=== PATIENT | male | born 1985 | race Caucasian/White ===

== ENCOUNTER 2018-11-02 08:28 | Outpatient (REF) | payer OTHER, SELFPAY ==
[2018-11-02 11:44] LABS: Anion Gap 8.2 mmol/L (3-11); BUN 17 mg/dL (7-18); CO2 27.8 mmol/L (21.0-32.0); CREATININE 0.87 mg/dL (0.70-1.30); Calcium 8.6 mg/dL (8.5-10.1); Calculated LDL 153 mg/dL; Chloride 103 mmol/L (98-107); Cholesterol 206 mg/dL (50-200); Glucose 96 mg/dL (70-100); HDL Cholesterol 27 mg/dL (40-60); Potassium 4.3 mmol/L (3.5-5.1); Sodium 139 mmol/L (136-145); Triglyceride 133 mg/dL (30-150)
== END 2018-11-02 08:48 ==
LOC: NCHCN 08:28
PROVIDERS: PCP Nurse Practitioner Family; Visit Provider Nurse Practitioner Family
DX: R73.9 Hyperglycemia, unspecified (principal); E78.5 Hyperlipidemia, unspecified
CPT/HCPCS: 80048; 80061; 83721

== ENCOUNTER 2019-03-02 17:46 | Emergency (ER) | payer BC, SELFPAY ==
[2019-03-02 17:52] VITALS: BP 174/82; PULSE 59; RESP 16; TEMP 36.6; O2SAT 99
--- NOTE | 2019-03-02 18:07 | ED.GENADUL_ITS ---
Discharge Plan Disposition Patient Disposition: HOME Discharge Details Chief Complaint: Orthopedic Clinical Impression: Left ankle sprain Primary Care Provider: Cindy Pollock ED Provider: Hany Kelly Home Meds and New Rx's Prescriptions: Continued multivitamin with minerals [Multiple Vitamin-Minerals] 1 EACH tablet 1 ea PO DAILY RF: 0 Zyrtec 10 MG capsule 10 mg PO DAILY RF: 0 lisinopril 2.5 mg Tablet 2.5 mg PO DAILY RF: 0 Discharge Instructions Instructions: Ankle Sprain (ED) Additional Instructions: Use lace up ankle stabilizer and crutches. Weight-bear as tolerated. Please take ibuprofen over the counter. Take 600mg by mouth every 6 hours as needed for pain. Please take acetaminophen (tylenol) - 650mg every 6 hours by mouth as needed for pain. Please contact your primary care physician to arrange follow-up. Return to the ER for any worsening or new concerning symptoms. Stand Alone Forms: Work Release Referrals: Cindy Pollock [Primary Care Provider] - Discharge Data Discharge Date/Time-TO BE ENTERED AT DEPARTURE: 03/02/19 18:50 Medical Decision Making 33-year-old male here with inversion injury to left ankle with swelling and tenderness lateral malleolus. X-ray of the left ankle reviewed and interpreted by me: No fracture. Plan to treat with lace up ankle stabilizer and crutches. Usual and customary discharge instructions were provided. Patient aware of hypertension and notes he accidentally forgot to take his antihypertensive medication today. HPI General Mode of arrival: ambulatory . Date/Time Provider Initiated Documentation: 03/02/19 17:47 . Limitations to Documentation: no limitations . Information obtained by: patient . HPI Narrative: 33-year-old male presents with chief complaint of ankle pain. Patient notes he twisted his left ankle and inverted around 3 PM. He did experience a popping sensation during the injury. He has had pain since injury and associated swelling. Pain is moderate and worse with movement of the ankle. No associated numbness. Related Data Home Medications Medication Instructions Recorded Confirmed Zyrtec 10 mg PO DAILY 03/23/17 03/02/19 multivitamin with minerals 1 ea PO DAILY 03/23/17 03/02/19 [Multiple Vitamin-Minerals] lisinopril 2.5 mg PO DAILY 03/02/19 03/02/19 Allergies Allergy/AdvReac Type Severity Reaction Status Date / Time No Known Drug Allergies Allergy Unverified 03/02/19 17:54 dust Allergy Uncoded 03/02/19 17:54 General Stated Complaint: Orthopedic WILLEM: 4 Review of Systems Musculoskeletal Musculoskeletal: Reports as per HPI and Denies numbness Neurologic Neurologic: Denies numbness PFSH Medical History Hypertension (Chronic) Social History Smoking/Tobacco Use Status: Never Alcohol Intake: current Alcohol Intake frequency: a few times a week Drug use: Never Substance use type: does not use Do you feel safe at home: Yes Do you feel safe in your relationship?: Yes Additional Social history: pt is not alone to assess privately Exam Const General: cooperative and no acute distress Cardio Rate: regular rate Rhythm: regular rhythm Pulses: dorsalis pedis pulses present on the left 2+ Neuro General: alert, awake and tone normal Extrem General: no edema Left lower extremity: lower leg Details: no tenderness and ankle Details: tenderness Location: of the lateral malleolus and swelling Details: laterally Other: Distal motor and sensation intact Course Vital Signs Vital signs: Vital Signs Temperature 36.6 C 03/02/19 17:52 Pulse 59 L 03/02/19 17:52 Respiratory Rate 16 03/02/19 17:52 Blood Pressure 174/82 H 03/02/19 17:52 Pulse Oximetry 99 03/02/19 17:52 Temperature 36.6 C 03/02/19 17:52 Temperature Source Skin 03/02/19 17:52 Pulse 59 L 03/02/19 17:52 Respiratory Rate 16 03/02/19 17:52 Respiratory Effort Non-Labored 03/02/19 17:56 Blood Pressure 174/82 H 03/02/19 17:52 Pulse Oximetry 99 03/02/19 17:52 Pain Level 7 03/02/19 17:53
--- NOTE | 2019-03-02 18:15 | DI.RAD_ITS ---
EXAM: XR ANKLE LT COMPLETE INDICATION: tender lateral, twisted. COMPARISON: No exams were available for comparison TECHNIQUE: 2D digital imaging was performed. FINDINGS: There is soft tissue swelling around the lateral malleolus. No fracture or ankle mortise widening is seen. The talar dome appears intact. IMPRESSION: Lateral soft tissue swelling.
--- NOTE | 2019-03-02 19:03 | DI.VRAD_ITS ---
PROCEDURE INFORMATION: Exam: XR Left Ankle Exam date and time: 03/02/2019 6:18 PM Clinical history: 33 years old, male; Other: Tender lateral, twisted TECHNIQUE: Imaging protocol: XR Left ankle. Views: 3 or more views. COMPARISON: No relevant prior studies available. FINDINGS: Bones/joints: Unremarkable. Soft tissues: Soft tissue swelling lateral ankle. IMPRESSION: No evidence for acute bony injury. If clinical symptoms persist recommend followup film in 7-10 days. Dictated and Authenticated by: Barb Mitchell MD. Ordering:TYSHAWN Leach MD
== END 2019-03-02 18:50 | disposition home or self-care (01) ==
PROVIDERS: Emergency Provider Student in an Organized Health Care Education/Training Program; PCP Nurse Practitioner Family
DX: S93.402A Sprain of unspecified ligament of left ankle, initial encounter (principal); X50.9XXA Other and unspecified overexertion or strenuous movements or postures, initial encounter; I10 Essential (primary) hypertension
CPT/HCPCS: 29515; 99283; 73610; E0114; L1902

== ENCOUNTER 2020-03-03 07:41 | Outpatient (REF) | payer BC, SELFPAY ==
[2020-03-03 18:36] LABS: Anion Gap 8.3 mmol/L (3-11); BUN 20 mg/dL (7-18); CO2 26.7 mmol/L (21.0-32.0); CREATININE 1.05 mg/dL (0.70-1.30); Calcium 9.1 mg/dL (8.5-10.1); Calculated LDL 133 mg/dL (<100); Chloride 104 mmol/L (98-107); Cholesterol 202 mg/dL (<200); Glucose 102 mg/dL (74-106); HDL Cholesterol 30 mg/dL (40-60); Potassium 4.4 mmol/L (3.5-5.1); Sodium 139 mmol/L (136-145); Triglyceride 198 mg/dL (<150)
== END 2020-03-03 08:01 ==
LOC: NCHCN 07:41
PROVIDERS: PCP Nurse Practitioner Family; Visit Provider Nurse Practitioner Family
DX: E78.5 Hyperlipidemia, unspecified (principal); I10 Essential (primary) hypertension; Z68.39 Body mass index [BMI] 39.0-39.9, adult
CPT/HCPCS: 80048; 80061

== ENCOUNTER 2022-03-08 17:51 | Outpatient (REF) | payer BC, SELFPAY ==
[2022-03-08 18:34] LABS: Anion Gap 9.3 mmol/L (3-11); BUN 16 mg/dL (7-18); CO2 24.7 mmol/L (21.0-32.0); Calcium 9.4 mg/dL (8.5-10.1); Calculated LDL 144 mg/dL (<100); Chloride 101 mmol/L (98-107); Cholesterol 213 mg/dL (<200); Estimated GFR 99.41 (mL/min/1.73m2); Glucose 97 mg/dL (74-106); HDL Cholesterol 36 mg/dL (40-60); Potassium 4.2 mmol/L (3.5-5.1); Sodium 135 mmol/L (136-145); Triglyceride 167 mg/dL (<150)
== END 2022-03-08 17:52 | disposition home or self-care (01) ==
LOC: NCHCN 17:51
PROVIDERS: PCP Nurse Practitioner Family; Visit Provider Physician Assistant
DX: I10 Essential (primary) hypertension (principal); E78.5 Hyperlipidemia, unspecified
CPT/HCPCS: 80048; 80061

== ENCOUNTER 2022-11-15 18:10 | Outpatient (REF) | payer BC, SELFPAY ==
[2022-11-15 20:28] LABS: BUN 15 mg/dL (7-18); CREATININE 0.9 mg/dL (0.70-1.30); Calcium 9.6 mg/dL (8.5-10.1); Chloride 102 mmol/L (98-107); Estimated GFR 112.81 (mL/min/1.73m2); Glucose 88 mg/dL (74-106); Sodium 139 mmol/L (136-145)
== END 2022-11-15 18:11 | disposition home or self-care (01) ==
LOC: NCHCN 18:10
PROVIDERS: PCP Nurse Practitioner Family; Visit Provider Physician Assistant
DX: R10.84 Generalized abdominal pain (principal)
CPT/HCPCS: 80048

== ENCOUNTER 2022-12-05 07:29 | Emergency (ER) | payer BC, SELFPAY ==
[2022-12-05 07:31] VITALS: BP 162/77; PULSE 64; RESP 18; TEMP 36.1; O2SAT 98
--- NOTE | 2022-12-05 07:45 | ED.GENADUL_ITS ---
Discharge Plan Disposition Patient Disposition: Home Discharge Details Clinical Impression: Back pain with left-sided sciatica Primary Care Provider: Elijah Gómez ED Provider: Maximino Pichardo Home Meds and New Rx's Prescriptions: New diazepam 5 mg tablet 5 mg PO BID PRNQty: 7 0RF Continued valsartan 160 mg tablet 160 mg PO DAILY cholecalciferol (vitamin D3) 125 mcg (5,000 unit) capsule 125 mcg PO DAILY Multiple Vitamin-Minerals 1 EACH tablet 1 ea PO DAILY Zyrtec 10 MG capsule 10 mg PO DAILY Discharge Instructions Instructions: Sciatica (ED) Additional Instructions: You were seen in the emergency department for your back pain. A prescription has been sent to the pharmacy at the bottom of the [place] for a muscle relaxer which you should take only when you are not driving or drinking alcohol. Please return if you develop numbness or tingling between your legs any fevers or any loss of control of your bowel or bladder as we discussed. For your pain please take medications as follows: 1. Take acetaminophen (Tylenol), 1,000 mg (two 500 mg tabs) every 6 hours 2. Take ibuprofen (Advil), 400 mg every 6 hours. Stand Alone Forms: Physical Therapy Referral, Work Release Discharge Data Discharge Date/Time-TO BE ENTERED AT DEPARTURE: 12/05/22 08:17 Medical Decision Making This is an uncomfortable appearing afebrile and not tachycardic 37-year-old male with elevated blood pressure and low back pain most consistent with left-sided sciatica given radiation down to left knee. Patient lacks red flags for back pain so will defer MRI at this point in time. Specifically he has no saddle anesthesia nor any loss of bowel or bladder control to suggest cauda equina syndrome. No history of malignancy and patient denies history of cancer so doubt pathological fracture. No loss of reflexes nor any lower extremity clonus to suggest upper motor neuron syndrome. No night sweats nor fevers to suggest new onset malignancy. Patient is not an IV drug user to suggest increased risk for spinal epidural abscess. No history of spinal surgeries to suggest increased risk for spinal epidural hematoma. Patient is not anticoagulated making him low risk for spinal epidural hematoma. No significant trauma to back to suggest increased risk for lumbar spinal fractures so I did not feel the patient required a CT scan. He is pending an outpatient CT abdomen pelvis as there is concern for possibility of a hernia however he has no nauseous nor vomiting nor does he have any abdominal pain at the moment so my suspicion for incarceration and SBO is exceedingly low and as a result I do not feel that he requires a CT abdomen pelvis. He has no right lower quadrant tenderness to suggest appendicitis. No diarrhea nor left lower quadrant tenderness to suggest diverticulitis. He has no rash to his back to suggest zoster. No pain out of proportion to suggest necrotizing soft tissue infection. He was taking more than the recommended dose of ibuprofen and acetaminophen so I counseled him on proper dosing. I reviewed his prescription drug monitoring program site and he had no prescriptions for any benzodiazepines or any opiates. I sent him with a work note and 7 diazepam tablets of 5 mg each. We discussed return indications including any loss of sensation between his legs or any loss of control of his bowels or bladder. He understood his return indications and was discharged with an empiric trial of expectant outpatient management. His blood pressure normalized in the ED. I printed the patient a referral for physical therapy and have asked health unit reactor operator Rain to have the patient seen within the week by his primary care provider. HPI General Date/Time Provider Initiated Documentation: 12/05/22 07:44 . HPI Narrative: This is a previously healthy 37-year-old male arriving via private vehicle to the emergency department in setting of left-sided lower back pain. Patient reports that he initially tweaked his back approximately 7 months ago. At that time he was reportedly bowling and he discontinued his back swing abruptly as he did not want to hit his child. His pain resolved at that point with several days of conservative treatment. 6 days ago he bent forward and had recurrence of similar pain in the left side of his low back. Over the subsequent several days his pain improve. This morning his pain worsened as he had difficulty getting out of bed. His pain radiates down to his left leg to just below his knee. He denies any surgeries to his back. He denies any history of cancer or malignancy. He has had no saddle anesthesia nor any loss of bowel or bladder control. No recent fevers. He denies history of ureterolithiasis. He is undergoing outpatient evaluation for hernia but is not having any abdominal pain nausea vomiting. He has been taking 1 g of ibuprofen and 1.5 g of acetaminophen every 6 hours. Related Data Home Medications Medication Instructions Recorded Confirmed cetirizine 10 mg capsule (Zyrtec) 10 mg PO DAILY 03/23/17 12/05/22 multivitamin with minerals 1 ea PO DAILY 03/23/17 12/05/22 (Multiple Vitamin-Minerals tablet) cholecalciferol (vitamin D3) 125 125 mcg PO DAILY 12/02/22 12/05/22 mcg (5,000 unit) capsule valsartan 160 mg tablet 160 mg PO DAILY 12/02/22 12/05/22 diazepam 5 mg tablet 5 mg PO BID PRN #7 tabs 12/05/22 Previous Rx's Medication Instructions Recorded diazepam 5 mg tablet 5 mg PO BID PRN #7 tabs 12/05/22 Allergies Allergy/AdvReac Type Severity Reaction Status Date / Time No Known Drug Allergies Allergy Unverified 12/05/22 07:35 dust Allergy Uncoded 12/05/22 07:35 General Stated Complaint: Nk/Back Pain WILLEM: 4 PFSH All Active Problems (Updated 12/05/22 @ 08:05 by Maximino Pichardo MD) Back pain with left-sided sciatica (Acute) LLQ abdominal pain (Acute) Medical History (Updated 12/05/22 @ 08:05 by Maximino Pichardo MD) Hypertension Social History Smoking/Tobacco Use Status: Never Smoking risk assessment performed?: Yes Alcohol Intake: current Alcohol Intake frequency: a few times a week Drug use: Never Substance use type: does not use Do you feel safe at home: Yes Do you feel safe in your relationship?: Yes Additional Social history: pt is not alone to assess privately Exam Narrative Exam Narrative: General: Well-appearing in no acute distress speaking in complete sentences. Head: Normocephalic, atraumatic. Eye: Extraocular eye movements intact. No conjunctival injection. No scleral icterus. Ear, nose, mouth, throat: Grossly normal inspection. Normal voice, handling secretions normally. Neck: Trachea midline. Cardiovascular: Well-perfused distal extremities. Respiratory: Nonlabored respiration. Gastrointestinal: Nondistended abdomen. Soft nontender abdomen. No rebound. No guarding. Musculoskeletal: No edema. Moving all 4 extremities spontaneously. 5 out of 5 bilateral lower extremity strength in dorsi and plantarflexion. No lower extremity clonus. 2+ patellar reflexes bilaterally. Patient is able to straight leg raise bilaterally. Skin: Normal for age and race, grossly normal temperature and turgor. No acute rash. Neurologic: Alert and appropriate, no apparent acute deficits. Psychiatric: Mood and manner are appropriate. Grooming and personal hygiene are appropriate. Course Vital Signs Vital signs: Vital Signs Temperature 36.1 C L 12/05/22 07:31 Pulse 64 12/05/22 07:31 Respiratory Rate 18 12/05/22 07:31 Blood Pressure 162/77 H 12/05/22 07:31 Pulse Oximetry 98 12/05/22 07:31 Temperature 36.1 C L 12/05/22 07:31 Temperature Source Skin 12/05/22 07:31 Pulse 64 12/05/22 07:31 Respiratory Rate 18 12/05/22 07:31 Respiratory Effort Normal 12/05/22 07:37 Blood Pressure 162/77 H 12/05/22 07:31 Blood Pressure Position Sitting 12/05/22 07:31 Pulse Oximetry 98 12/05/22 07:31 Oxygen Delivery Method Room Air 12/05/22 07:31 Oxygen Flow Rate 0 12/05/22 07:31 Pain Level 9 12/05/22 07:31 PAWSS Have you Been Recently Intoxicated or Drunk Within the Last 30 days?: Yes Have you Ever Experienced Previous Episodes of Alcohol Withdrawal?: No Have you ever Experienced Withdrawal Seizures?: No Have you ever Experienced Delirium Tremens(DT)s?: No Have you ever undergone Alcohol Rehabilitation Treatment (i.e, inpt ot outpatient treatment programs)?: No Have you ever Experienced Blackouts?: No Have you ever Combined Alcohol with other Downers within the last 90 days?: No Have you ever Combined Alcohol with any other Substance of Abuse during the last 90 days?: No Positive Blood Alcohol level on Presentation? [PCS.BAL]: No Evidence of Increased Autonomic Activity (i.e. HR>120, tremor, sweating, agitation, nausea)?: No Result: 1
[2022-12-05 08:13] VITALS: BP 126/78
[2022-12-05] MEDS: Ibuprofen 600 MG TAB PO (08:17)
[2022-12-05] MEDS: Acetaminophen 500 MG TAB 1000 MG PO (08:17)
[2022-12-05] MEDS: Lidocaine 5% Patch 1 PATCH TP (08:17)
--- NOTE | 2022-12-05 08:31 | NUR.NOTE ---
Accessed chart for phone number for referralNursing Note:
== END 2022-12-05 08:17 | disposition home or self-care (01) ==
PROVIDERS: Emergency Provider Emergency Medicine; PCP Physician Assistant
DX: M54.42 Lumbago with sciatica, left side (principal)
CPT/HCPCS: 99283; 99282

== ENCOUNTER → 2023-04-14 01:25 | Outpatient (CLI) | payer BC, SELFPAY ==
--- NOTE | 2023-04-14 | DI.RAD_ITS ---
Exam(s) XR LUMBAR SPINE COMPLETE EXAM: XR LUMBAR SPINE COMPLETE CLINICAL HISTORY: LOW BACK PAIN, M54.50, CHRONIC, NO TRAUMA. TECHNIQUE: 2D digital imaging was performed. Five views. COMPARISON: No exams were available for comparison FINDINGS: BONES: No fracture or destructive lesion. Vertebral body heights are maintained. No facet hypertroph y identified. DISKS: Intervertebral disc spaces are maintained. ALIGNMENT: Lumbar spinal alignment is within normal limits. SOFT TISSUE: Normal. IMPRESSION: Unremarkable radiographs of the lumbar spine. DATA REPOSITORY: RADIATION DOSE DELIVERED:
== END ==
PROVIDERS: PCP Physician Assistant; Visit Provider Physician Assistant
DX: M54.50 Low back pain, unspecified (principal)
CPT/HCPCS: 72110

== ENCOUNTER 2023-12-04 15:19 | Outpatient (CLI) | payer SELFPAY ==
[2023-12-04 10:27] LABS: Anion Gap 8.9 mmol/L (3-11); BUN 15 mg/dL (7-18); CO2 25.1 mmol/L (21.0-32.0); CREATININE 0.9 mg/dL (0.70-1.30); Calcium 8.7 mg/dL (8.5-10.1); Calculated LDL 121 mg/dL (<100); Chloride 103 mmol/L (98-107); Cholesterol 207 mg/dL (<200); Estimated GFR 111.42 (mL/min/1.73m2); Glucose 102 mg/dL (74-106); HDL Cholesterol 37 mg/dL (40-60); Potassium 4.1 mmol/L (3.5-5.1); Sodium 137 mmol/L (136-145); Triglyceride 246 mg/dL (<150)
== END 2023-12-04 15:20 | disposition home or self-care (01) ==
LOC: LBO 12-13 15:21
PROVIDERS: PCP Physician Assistant; Visit Provider Physician Assistant
DX: I10 Essential (primary) hypertension (principal); E78.5 Hyperlipidemia, unspecified
CPT/HCPCS: 36415; 80048; 80061